=== PATIENT | female | born 1940 | race Hispanic/Latino ===

== ENCOUNTER 2017-09-22 10:26 | Emergency (ER) | payer OTHER ==
[~2017-09-22 10:26] MED LIST: ACET1TAB12 PO; ALPR0.5T8 PO; AMLO2.5T PO; ASPI-1026 PO; BIOT1CAP3 PO; CHOL400C9 PO; GLUC-252 PO; LEVO75TA10 PO; PRAV20TA4 PO; RANI150T7 PO; VITA-328 PO
[2017-09-22] MEDS ORDERED: DIAZEPAM 5 MG TABLET ONE (11:53)
[2017-09-22] MEDS ORDERED: ACETAMINOPHEN EXTRA STRENGTH 500 MG TABLET ONE (11:53)
[2017-10-31] MEDS ORDERED: ALPR0.5T8 PO (11:43)
[2017-10-31] MEDS ORDERED: ASPI-1012 PO (11:43)
== END 2017-09-22 13:03 | disposition home or self-care (01) ==
LOC: EDH 10:26
DX: M54.16 Radiculopathy, lumbar region (principal); I10 Essential (primary) hypertension; E78.5 Hyperlipidemia, unspecified; Z87.891 Personal history of nicotine dependence; Z88.6 Allergy status to analgesic agent; Z88.5 Allergy status to narcotic agent
CPT/HCPCS: 73521

== ENCOUNTER 2017-10-06 19:15 | Observation (INO) | payer OTHER ==
[2017-10-06 19:48] LABS: BASOPHILS % (AUTO) 0.5 % (0.0-5.0); EOSINOPHILS % (AUTO) 1.2 % (0.0-8.0); HEMATOCRIT 40.4 % (36-48); LYMPHOCYTES % (AUTO) 27.8 % (21.0-51.0); MEAN CORPUSCULAR HGB CONC 33.5 g/dL (32.0-36.0); MEAN CORPUSCULAR VOLUME 92.7 fL (79-99); MONOCYTES % (AUTO) 10.4 % (3.0-13.0); NEUTROPHILS % (AUTO) 60.1 % (40.0-77.0); PLATELET COUNT (AUTO) 296 K/uL (130-400); RED BLOOD CELL COUNT(AUTO) 4.36 MIL/uL (4.00-5.50); RED CELL DISTRIBUTION WIDTH 14.1 % (11.0-15.5); WHITE BLOOD COUNT (AUTO) 10.1 K/uL (4.8-10.8)
[2017-10-06] MEDS ORDERED: ASPIRIN 81MG TAB.CHEW ONE (19:49)
[2017-10-06] MEDS ORDERED: NITROGLYCERIN 0.4 MG SL TAB SL ONE (19:49)
[2017-10-06 19:58] LABS: INR 0.97 (0.85-1.15); PARTIAL THROMBOPLASTIN TIME 23.8 SEC (26.3-35.5); PROTHROMBIN TIME 10.2 SEC (9.6-11.6)
[2017-10-06 20:01] LABS: CREATININE 0.9 mg/dL (0.5-1.5); POTASSIUM 3.6 mmol/L (3.5-5.1)
[2017-10-06 20:13] LABS: ALBUMIN 3.9 g/dL (3.5-5.0); BILIRUBIN,TOTAL 0.3 mg/dL (0.2-1.0); CREATINE KINASE MB 0.9 ng/mL (0.5-3.6)
[2017-10-06] MEDS ORDERED: NITROGLYCERIN 1GM/1 INCH PACKET TD SCH (21:00)
[2017-10-06] MEDS ORDERED: NITROGLYCERIN 1GM/1 INCH PACKET TD ONE (21:05)
[2017-10-06] MEDS ORDERED: METOPROLOL TARTRATE 25 MG TAB PO SCH (21:06)
[2017-10-06] MEDS ORDERED: METOPROLOL TARTRATE 25 MG TAB ONE (21:06)
[2017-10-07 03:42] LABS: CREATINE KINASE MB 0.7 ng/mL (0.5-3.6); CREATINE KINASE, TOTAL 56 U/L (21-232); MYOGLOBIN 32 ng/mL (10-92); TROPONIN I < 0.04 ng/mL (0.00-0.06)
[2017-10-07] MEDS ORDERED: NITROGLYCERIN 1GM/1 INCH PACKET TD ONE (04:12)
[2017-10-07] MEDS ORDERED: ASPIRIN 325 MG TABLET PO SCH (09:00)
[2017-10-07 09:31] LABS: CREATINE KINASE MB 0.7 ng/mL (0.5-3.6); CREATINE KINASE, TOTAL 76 U/L (21-232); MYOGLOBIN 28 ng/mL (10-92); TROPONIN I < 0.04 ng/mL (0.00-0.06)
[2017-10-07] MEDS ORDERED: NITR0.4T50 SL (14:49)
[2017-10-31] MEDS ORDERED: ASPI-1012 PO (11:43)
[2017-10-31] MEDS ORDERED: ALPR0.5T8 PO (11:43)
== END 2017-10-07 15:29 | disposition home or self-care (01) ==
LOC: EDH 19:15 → EDHIP 20:40
PROVIDERS: ADMIT Internal Medicine; ATTEND Internal Medicine
DX: R07.89 Other chest pain (principal); I10 Essential (primary) hypertension; E78.5 Hyperlipidemia, unspecified; E03.9 Hypothyroidism, unspecified; Z88.5 Allergy status to narcotic agent
CPT/HCPCS: 36415 ×2; 71045; 80053; 82550 ×3; 82553 ×3; 83874 ×3; 84484 ×3; 85025; 85610; 85730; 93005; 99285; G0378 ×19

== ENCOUNTER 2017-11-03 06:06 | Day surgery (SDC) | payer OTHER ==
[2017-10-31 11:16] VITALS: BP 138/69
[2017-10-31 11:27] LABS: APPEARANCE,URINE Clear (CLEAR); BASOPHILS % (AUTO) 0.5 % (0.0-5.0); BILIRUBIN,URINE Negative (NEGATIVE); COLOR,URINE Yellow (YELLOW); EOSINOPHILS % (AUTO) 0.9 % (0.0-8.0); GLUCOSE, URINE (UA) Negative (NEGATIVE); HEMATOCRIT 40.2 % (36-48); KETONES,URINE Negative (NEGATIVE); LEUKOCYTE ESTERASE ,URINE Negative (NEGATIVE); LYMPHOCYTES % (AUTO) 17.9 % (21.0-51.0); MEAN CORPUSCULAR HEMOGLOBIN 31.6 pg (27.0-33.0); MEAN CORPUSCULAR HGB CONC 33.6 g/dL (32.0-36.0); MEAN CORPUSCULAR VOLUME 93.9 fL (79-99); MONOCYTES % (AUTO) 8.5 % (3.0-13.0); NEUTROPHILS % (AUTO) 72.2 % (40.0-77.0); NITRATE,URINE Negative (NEGATIVE); OCCULT BLOOD,URINE Negative (NEGATIVE); PLATELET COUNT (AUTO) 268 K/uL (130-400); PROTEIN,URINE Negative (NEGATIVE); RED BLOOD CELL COUNT(AUTO) 4.28 MIL/uL (4.00-5.50); RED CELL DISTRIBUTION WIDTH 14.5 % (11.0-15.5); UROBILINOGEN,URINE 0.2 mg/dL (0.2-1.0); WHITE BLOOD COUNT (AUTO) 8.6 K/uL (4.8-10.8)
[2017-10-31 11:34] LABS: CREATININE 0.8 mg/dL (0.5-1.5); POTASSIUM 3.9 mmol/L (3.5-5.1)
[2017-10-31 11:44] LABS: INR 0.96 (0.85-1.15); PARTIAL THROMBOPLASTIN TIME 24.1 SEC (26.3-35.5); PROTHROMBIN TIME 10.1 SEC (9.6-11.6)
[2017-11-03] VITALS (10 sets, daily range): BP systolic 124–174; BP diastolic 63–72
[~2017-11-03] VITALS: Ht 165.1 cm; Wt 62.0 kg
[~2017-11-03 06:06] MED LIST changes: -ACET1TAB12 PO; -AMLO2.5T PO; +ASPI-1012 PO; -ASPI-1026 PO; -BIOT1CAP3 PO; -CHOL400C9 PO; -GLUC-252 PO; +NITR0.4T50 SL; -RANI150T7 PO; -VITA-328 PO
[2017-11-03] MEDS ORDERED: SODIUM CHLORIDE 0.9% 1000ML 1,000 ML IV ONE (06:25)
[2017-11-03] MEDS ORDERED: DOCU100T PO (06:48)
[2017-11-03] MEDS ORDERED: AEC81 PO (06:48)
[2017-11-03] MEDS ORDERED: AMLO2.5T PO (06:48)
[2017-11-03] MEDS ORDERED: LIDOCAINE HCL 2% 20ML ONE (07:11)
[2017-11-03] MEDS ORDERED: IOPAMIDOL-370 100 ML VIAL IV ONE (07:11)
[2017-11-03] MEDS ORDERED: ISOVUE-370 50ML VIAL IV ONE (07:11)
[2017-11-03] MEDS ORDERED: HEPARIN SODIUM 1000UNIT/ML 10ML VIAL ONE (07:11)
[2017-11-03] MEDS ORDERED: HYDRALAZINE HCL 20 MG/ML VIAL ONE (07:52)
[2017-11-03] MEDS ORDERED: ALPR0.5T PO (08:09)
[2017-11-03] MEDS ORDERED: AMLO5TAB2 PO (08:09)
== END 2017-11-03 12:10 | disposition home or self-care (01) ==
LOC: DAH 06:06
PROVIDERS: ATTEND Internal Medicine Cardiovascular Disease
DX: I20.9 Angina pectoris, unspecified (principal); I10 Essential (primary) hypertension; E78.5 Hyperlipidemia, unspecified; Z79.82 Long term (current) use of aspirin; Z79.899 Other long term (current) drug therapy; E03.9 Hypothyroidism, unspecified; K21.9 Gastro-esophageal reflux disease without esophagitis
CPT/HCPCS: 36415; 71045; 80048; 81003; 85025; 85610; 85730; 93005; 93458; 99156; 99157; A4606; C1760; C1894; J0360; J1644; J3490; J7030; Q9967 ×2

== ENCOUNTER → 2018-06-03 | Outpatient (CLI) | payer OTHER ==
[~2018-06-03] MED LIST changes: +AEC81 PO; +ALPR0.5T PO; +AMLO5TAB7 PO; +DOCU100T PO
== END | disposition home or self-care (01) ==
LOC: RAH 11:43
PROVIDERS: ATTEND Family Medicine
DX: Z12.31 Encounter for screening mammogram for malignant neoplasm of breast (principal)
CPT/HCPCS: 77067

== ENCOUNTER → 2018-07-01 | Outpatient (CLI) | payer OTHER | END | disposition home or self-care (01) | LOC: SHCH 13:35 | PROVIDERS: ATTEND Internal Medicine Cardiovascular Disease | DX: G45.9 Transient cerebral ischemic attack, unspecified (principal) | CPT/HCPCS: 93880 ==

== ENCOUNTER → 2019-08-06 | Outpatient (CLI) | payer OTHER ==
[~2019-08-06] MED LIST changes: -AMLO5TAB7 PO; +AMLO5TAB9 PO
== END | disposition home or self-care (01) ==
LOC: RAH 11:38
PROVIDERS: ATTEND Family Medicine
DX: Z12.31 Encounter for screening mammogram for malignant neoplasm of breast (principal)
CPT/HCPCS: 77067

== ENCOUNTER → 2019-08-17 | Outpatient (CLI) | payer OTHER | END | disposition home or self-care (01) | LOC: RAH 12:34 | PROVIDERS: ATTEND Family Medicine | DX: R92.2 Inconclusive mammogram (principal); R92.8 Other abnormal and inconclusive findings on diagnostic imaging of breast | CPT/HCPCS: 76641; 77065 ==

== ENCOUNTER → 2019-09-23 | Outpatient (CLI) | payer OTHER ==
[2019-09-23] MEDS: REGADENOSON 0.4 MG/5 ML PF SYG IVP SCH (13:49)
== END | disposition home or self-care (01) ==
LOC: SHCH 07:48
PROVIDERS: ATTEND Internal Medicine Cardiovascular Disease
DX: I25.10 Atherosclerotic heart disease of native coronary artery without angina pectoris (principal)
CPT/HCPCS: 78452; 93017; 96374; A9500 ×2; J2785

== ENCOUNTER → 2020-08-23 | Outpatient (CLI) | payer OTHER ==
[~2020-08-23] MED LIST changes: +AMLO-257 PO; -AMLO5TAB9 PO
== END | disposition home or self-care (01) ==
LOC: RAH 14:45
PROVIDERS: ATTEND Family Medicine
DX: Z12.31 Encounter for screening mammogram for malignant neoplasm of breast (principal)
CPT/HCPCS: 77067

== ENCOUNTER 2021-08-30 12:49 | Emergency (ER) | payer OTHER ==
[~2021-08-30] VITALS: Ht 160 cm; Wt 59.0 kg
[2021-08-30 14:18] LABS: BASOPHILS % (AUTO) 0.9 % (0.0-5.0); EOSINOPHILS % (AUTO) 1.6 % (0.0-8.0); HEMATOCRIT 42.3 % (36-48); LYMPHOCYTES % (AUTO) 25.4 % (21.0-51.0); MEAN CORPUSCULAR HEMOGLOBIN 30.7 pg (27.0-33.0); MEAN CORPUSCULAR HGB CONC 31.4 g/dL (32.0-36.0); MEAN CORPUSCULAR VOLUME 97.7 fL (79-99); NEUTROPHILS % (AUTO) 61.5 % (40.0-77.0); PLATELET COUNT (AUTO) 256 K/uL (130-400); RED BLOOD CELL COUNT(AUTO) 4.33 MIL/uL (4.00-5.50); RED CELL DISTRIBUTION WIDTH 12.9 % (11.0-15.5); WHITE BLOOD COUNT (AUTO) 6.7 K/uL (4.8-10.8)
[2021-08-30 14:21] LABS: APPEARANCE,URINE Clear (CLEAR); BILIRUBIN,URINE Negative (NEGATIVE); COLOR,URINE Yellow (YELLOW); GLUCOSE, URINE (UA) Negative (NEGATIVE); KETONES,URINE Negative (NEGATIVE); LEUKOCYTE ESTERASE ,URINE Trace (NEGATIVE); NITRATE,URINE Negative (NEGATIVE); OCCULT BLOOD,URINE Negative (NEGATIVE); PROTEIN,URINE Negative (NEGATIVE); UROBILINOGEN,URINE 0.2 mg/dL (0.2-1.0)
[2021-08-30 14:30] LABS: CREATININE 0.9 mg/dL (0.5-1.5); POTASSIUM 3.3 mmol/L (3.5-5.1)
[2021-08-30 14:41] LABS: BACTERIA,URINE Rare /HPF (None Seen); RBC,URINE 0-1 /HPF (0-1); SQUAMOUS EPITHELIAL CELL,UR None Seen /HPF (0-2); WBC,URINE 0-1 /HPF (0-1)
[2021-08-30 14:50] LABS: ALBUMIN 4.4 g/dL (3.5-5.0); BILIRUBIN,TOTAL 0.3 mg/dL (0.2-1.0); TOTAL PROTEIN, SERUM 8.5 g/dL (6.0-8.3)
[2021-08-30 16:50] VITALS: BP 134/67
== END 2021-08-30 17:48 | disposition home or self-care (01) ==
LOC: EDH 12:49
DX: R42 Dizziness and giddiness (principal); R51.9 Headache, unspecified; R11.0 Nausea; E78.00 Pure hypercholesterolemia, unspecified; F32.9 Major depressive disorder, single episode, unspecified; F41.9 Anxiety disorder, unspecified; I10 Essential (primary) hypertension; Z90.49 Acquired absence of other specified parts of digestive tract; Z90.710 Acquired absence of both cervix and uterus; Z98.890 Other specified postprocedural states; Z88.2 Allergy status to sulfonamides; Z88.5 Allergy status to narcotic agent; Z79.82 Long term (current) use of aspirin; Z79.899 Other long term (current) drug therapy
CPT/HCPCS: 36415; 70450; 80053; 81001; 82550; 83874; 84484; 85025; 93005

== ENCOUNTER → 2021-09-13 | Outpatient (CLI) | payer OTHER | END | disposition home or self-care (01) | LOC: SHCH 13:46 | PROVIDERS: ATTEND Internal Medicine Cardiovascular Disease | DX: G45.9 Transient cerebral ischemic attack, unspecified (principal) | CPT/HCPCS: 93880 ==

== ENCOUNTER 2024-01-07 03:10 | Emergency (ER) | payer OTHER ==
[2024-01-07 03:36] LABS: BASOPHILS # (AUTO) 0.03 K/uL (0.00-0.20); BASOPHILS % (AUTO) 0.5 % (0.0-5.0); EOSINOPHILS # (AUTO) 0.07 K/uL (0.00-0.70); EOSINOPHILS % (AUTO) 1.2 % (0.0-8.0); HEMATOCRIT 36.5 % (36-48); IMMATURE GRANULOCYTE ABSOLUTE 0.02 K/uL (0-1); LYMPHOCYTES # (AUTO) 1.1 K/uL (1.0-4.8); LYMPHOCYTES % (AUTO) 18.5 % (21.0-51.0); MEAN CORPUSCULAR HEMOGLOBIN 30.1 pg (27.0-33.0); MEAN CORPUSCULAR HGB CONC 32.3 g/dL (32.0-36.0); MEAN CORPUSCULAR VOLUME 93.1 fL (79-99); MONOCYTES # (AUTO) 0.6 K/uL (0.1-1.0); MONOCYTES % (AUTO) 10.4 % (3.0-13.0); NEUTROPHILS # (AUTO) 4.1 K/uL (1.8-7.7); NEUTROPHILS % (AUTO) 69.1 % (40.0-77.0); PLATELET COUNT (AUTO) 225 K/uL (130-400); RED BLOOD CELL COUNT(AUTO) 3.92 MIL/uL (4.00-5.50); RED CELL DISTRIBUTION WIDTH 13.1 % (11.0-15.5); WHITE BLOOD COUNT (AUTO) 5.9 K/uL (4.8-10.8)
[2024-01-07 03:45] LABS: CREATININE 0.7 mg/dL (0.5-1.0); POTASSIUM 4.3 mmol/L (3.5-5.1)
[2024-01-07 03:50] LABS: ALBUMIN 3.5 g/dL (3.5-5.0); BILIRUBIN,TOTAL 0.3 mg/dL (0.2-1.0)
[2024-01-07 04:57] VITALS: BP 143/62; PULSE 69; RESP 20; O2SAT 96
== END 2024-01-07 05:25 | disposition home or self-care (01) ==
LOC: EDH 03:10
DX: R07.89 Other chest pain (principal); R42 Dizziness and giddiness; I10 Essential (primary) hypertension; E78.00 Pure hypercholesterolemia, unspecified; F41.9 Anxiety disorder, unspecified; F32.A Depression, unspecified; Z79.82 Long term (current) use of aspirin; Z79.899 Other long term (current) drug therapy; Z90.49 Acquired absence of other specified parts of digestive tract; Z90.710 Acquired absence of both cervix and uterus; Z98.890 Other specified postprocedural states; Z88.2 Allergy status to sulfonamides; Z88.8 Allergy status to other drugs, medicaments and biological substances
CPT/HCPCS: 36415; 71045; 80053; 84484; 85025; 93005

== ENCOUNTER → 2024-03-15 | Outpatient (CLI) | payer OTHER | END | disposition home or self-care (01) | LOC: RAH 09:07 | PROVIDERS: ATTEND Family Medicine | DX: N64.4 Mastodynia (principal) | CPT/HCPCS: 76641 ==

== ENCOUNTER 2024-05-15 11:12 | Observation (INO) | payer OTHER ==
[~2024-05-15] VITALS: Ht 162.6 cm; Wt 55.3 kg
[2024-05-15 11:29] LABS: BASOPHILS # (AUTO) 0.04 K/uL (0.00-0.20); BASOPHILS % (AUTO) 0.5 % (0.0-5.0); HEMATOCRIT 36.4 % (36-48); IMMATURE GRANULOCYTE ABSOLUTE 0.06 K/uL (0-1); LYMPHOCYTES # (AUTO) 0.8 K/uL (1.0-4.8); LYMPHOCYTES % (AUTO) 10.8 % (21.0-51.0); MEAN CORPUSCULAR HEMOGLOBIN 30.4 pg (27.0-33.0); MEAN CORPUSCULAR HGB CONC 32.7 g/dL (32.0-36.0); MEAN CORPUSCULAR VOLUME 92.9 fL (79-99); MONOCYTES # (AUTO) 0.7 K/uL (0.1-1.0); MONOCYTES % (AUTO) 9.6 % (3.0-13.0); NEUTROPHILS % (AUTO) 78.3 % (40.0-77.0); PLATELET COUNT (AUTO) 195 K/uL (130-400); RED BLOOD CELL COUNT(AUTO) 3.92 MIL/uL (4.00-5.50); RED CELL DISTRIBUTION WIDTH 13.4 % (11.0-15.5); WHITE BLOOD COUNT (AUTO) 7.6 K/uL (4.8-10.8)
[2024-05-15 11:35] LABS: CREATININE 0.9 mg/dL (0.5-1.0); POTASSIUM 3.6 mmol/L (3.5-5.1)
[2024-05-15 11:45] LABS: B-TYPE NATRIURETIC PEPTIDE 32 pg/mL (0-100)
[2024-05-15] MEDS ORDERED: ondanSETRON 4MG INJ IVP ONE (12:30)
[2024-05-15] MEDS ORDERED: FAMOTIDINE 20MG VIAL IV ONE (12:30)
[2024-05-15] MEDS ORDERED: acetaMINOPHEN 650 MG SUPPOSITORY RC PRN (13:30)
[2024-05-15] MEDS ORDERED: hydrALAZine 20MG/ML VIAL IV PRN (13:30)
[2024-05-15] MEDS ORDERED: acetaMINOPHEN 325 MG TAB PO PRN (13:30)
[2024-05-15] MEDS: cefTRIAXone 1G VIAL IVP SCH (13:33)
[2024-05-15] MEDS ORDERED: NITROGLYCERIN 0.4 MG SL TAB SL PRN (14:00)
[2024-05-15] MEDS ORDERED: ALPRAZolam 0.5 MG TABLET PO SCH (14:00)
[2024-05-15] MEDS: ASPIRIN 325MG EC TAB PO ONE (14:02)
[2024-05-15 14:20] LABS: APPEARANCE,URINE CLEAR (CLEAR); BILIRUBIN,URINE NEGATIVE (NEGATIVE); COLOR,URINE YELLOW (YELLOW); GLUCOSE, URINE (UA) NEGATIVE (NEGATIVE); KETONES,URINE NEGATIVE (NEGATIVE); LEUKOCYTE ESTERASE ,URINE NEGATIVE Leu/uL (NEGATIVE); NITRATE,URINE NEGATIVE (NEGATIVE); PH,URINE 7.5 (5.0-8.0); PROTEIN,URINE NEGATIVE (NEGATIVE); UROBILINOGEN,URINE 0.2 mg/dL (0.2-1.0)
[2024-05-15 14:21] LABS: ADD UA MICROSCOPIC YES
[2024-05-15] MEDS: BisaCODYL 10 MG SUPP.RECT RC ONE (14:21)
[2024-05-15 14:23] LABS: MUCUS,URINE RARE LPF (None Seen); WBC,URINE 0-1 /HPF (0-1)
[2024-05-15] MEDS ORDERED: ALPRAZolam 0.5 MG TABLET PO PRN (14:30)
[2024-05-15 15:09] LABS: INFLUENZA TYPE A Negative For Type A (NEGATIVE); INFLUENZA TYPE B Negative For Type B (NEGATIVE)
[2024-05-15 15:10] LABS: COVID19 (SARS ANTIGEN RAPID) PRESUMPTIVE NEGATIVE (NEGATIVE)
[2024-05-15 17:20] VITALS: O2SAT 98
[2024-05-15 17:25] VITALS: BP 113/50; PULSE 67; RESP 17; TEMP 98
[2024-05-15 19:18] LABS: INR 1.04 (0.85-1.15); PROTHROMBIN TIME 11.2 SEC (9.6-11.6)
[2024-05-15 20:00] VITALS: BP 133/58; PULSE 61; RESP 16; TEMP 97.9; O2SAT 99
[2024-05-15] MEDS: PRAVASTATIN SODIUM 20 MG PO SCH (21:00)
[2024-05-15] MEDS ORDERED: simVASTatin 20 MG TABLET PO SCH (21:00)
[2024-05-15 23:51] VITALS: BP 110/55; PULSE 53; RESP 16; TEMP 98
[2024-05-16 03:55] VITALS: BP 132/73; PULSE 55; RESP 16; TEMP 98
[2024-05-16 04:39] LABS: BASOPHILS # (AUTO) 0.05 K/uL (0.00-0.20); BASOPHILS % (AUTO) 0.9 % (0.0-5.0); EOSINOPHILS # (AUTO) 0.07 K/uL (0.00-0.70); EOSINOPHILS % (AUTO) 1.2 % (0.0-8.0); HEMATOCRIT 40.1 % (36-48); IMMATURE GRANULOCYTE ABSOLUTE 0.03 K/uL (0-1); LYMPHOCYTES # (AUTO) 1.8 K/uL (1.0-4.8); LYMPHOCYTES % (AUTO) 30.7 % (21.0-51.0); MEAN CORPUSCULAR HEMOGLOBIN 30.9 pg (27.0-33.0); MEAN CORPUSCULAR HGB CONC 32.7 g/dL (32.0-36.0); MEAN CORPUSCULAR VOLUME 94.6 fL (79-99); MONOCYTES # (AUTO) 1.1 K/uL (0.1-1.0); MONOCYTES % (AUTO) 18.5 % (3.0-13.0); NEUTROPHILS # (AUTO) 2.8 K/uL (1.8-7.7); NEUTROPHILS % (AUTO) 48.2 % (40.0-77.0); PLATELET COUNT (AUTO) 193 K/uL (130-400); RED BLOOD CELL COUNT(AUTO) 4.24 MIL/uL (4.00-5.50); RED CELL DISTRIBUTION WIDTH 13.6 % (11.0-15.5); WHITE BLOOD COUNT (AUTO) 5.8 K/uL (4.8-10.8)
[2024-05-16 05:15] LABS: B-TYPE NATRIURETIC PEPTIDE 46 pg/mL (0-100)
[2024-05-16 05:18] LABS: CREATININE 1.1 mg/dL (0.5-1.0); MAGNESIUM 2.3 mg/dL (1.80-2.40); POTASSIUM 3.9 mmol/L (3.5-5.1); THYROID STIMULATING HORMONE 1.05 uIU/mL (0.36-3.74)
[2024-05-16] MEDS: levoTHYROxine 75 MCG TABLET PO SCH (07:00)
[2024-05-16 07:50] VITALS: BP 134/60; PULSE 58; RESP 16; TEMP 97.6
[2024-05-16 08:00] VITALS: O2SAT 99
[2024-05-16] MEDS: amLODIPine 5 MG TAB PO SCH (08:02)
[2024-05-16] MEDS: polyETHYLene GLYCol 3350 17 GM POWD.PACK PO SCH (08:03)
[2024-05-16] MEDS: PANTOPrazole 40 MG TAB DR PO SCH (08:03)
[2024-05-16] MEDS: ASPIRIN 81MG CHEW TAB PO SCH (08:03)
[2024-05-16] MEDS: ISOSORBIDE MONO 60MG SR TAB PO SCH (08:03)
[2024-05-16] MEDS: ENOXAPARIN SODIUM 40 MG/0.4 ML SYRINGE SQ SCH (08:04)
[2024-05-16] MEDS ORDERED: ISOSORBIDE MONO 30MG SR TAB PO SCH (09:00)
[2024-05-16 11:43] VITALS: BP 115/55; PULSE 59; RESP 16; TEMP 97.7
[2024-05-16 11:52] LABS: CHOLESTEROL 189 mg/dL (<200); HDL CHOLESTEROL 82 mg/dL (35-85); LDL DIRECT 83 mg/dL (0-99); TRIGLYCERIDES 95 mg/dL (30-200)
[2024-05-16] MEDS: doCUSate SODIUM 100 MG CAP PO PRN (15:16)
[2024-05-16] MEDS: LACTULOSE 20 GM/30 ML UDCUP PO PRN (15:16)
[2024-05-16] MEDS ORDERED: Isosorbide Mono 60MG Sr Tab PO (15:40)
[2024-05-16 16:27] VITALS: BP 111/57; PULSE 60; RESP 16; TEMP 98.3
== END 2024-05-16 17:20 | disposition home or self-care (01) ==
LOC: EDH 11:12 → EDHIP 13:55 → 3CH 16:50
PROVIDERS: ADMIT Internal Medicine Pulmonary Disease; ATTEND Internal Medicine Pulmonary Disease
DX: I25.119 Atherosclerotic heart disease of native coronary artery with unspecified angina pectoris (principal); I11.0 Hypertensive heart disease with heart failure; I50.32 Chronic diastolic (congestive) heart failure; K21.9 Gastro-esophageal reflux disease without esophagitis; K59.00 Constipation, unspecified; F03.94 Unspecified dementia, unspecified severity, with anxiety; E89.0 Postprocedural hypothyroidism; R07.89 Other chest pain; R11.2 Nausea with vomiting, unspecified; E78.5 Hyperlipidemia, unspecified; F41.9 Anxiety disorder, unspecified; E78.00 Pure hypercholesterolemia, unspecified; M19.90 Unspecified osteoarthritis, unspecified site; Z87.891 Personal history of nicotine dependence; Z88.2 Allergy status to sulfonamides; Z90.710 Acquired absence of both cervix and uterus; Z98.890 Other specified postprocedural states; Z79.899 Other long term (current) drug therapy; Z20.822 Contact with and (suspected) exposure to COVID-19
CPT/HCPCS: 96365; 99285; 82550 ×4; 83735 ×2; 84484 ×4; 80048 ×2; 83880 ×2; 85025 ×2; 85378; 85610; 87804 ×2; 87426; 81001; 36415 ×2; 71045; 93005 ×2; 96372; 84443; 80061; 97161; 97116; 97530 ×2; 84145; G0378 ×26; J0696; J1650; G8980-CI; G8983-CI

== ENCOUNTER → 2024-10-11 | Outpatient (CLI) | payer OTHER ==
[~2024-10-11] MED LIST changes: -ALPR0.5T8 PO; -ASPI-1012 PO; +Isosorbide Mono 60MG Sr Tab PO
--- NOTE | 2024-10-11 09:30 | HMCIMG ---
MAMMO SCREENING BILATERAL HISTORY: Screening mammogram. COMPARISON: 10/09/2023 TECHNIQUE: Bilateral screening mammogram with CAD was performed with craniocaudal and mediolateral oblique projections. FINDINGS: The breasts are extremely dense which lowers the sensitivity of mammogram. There is no evidence of a dominant mass, or suspicious microcalcification. There is no evidence of nipple retraction or skin thickening. IMPRESSION: 1. Stable mammogram. Patient was entered into a reminder system with a target due date for their next mammogram. BI-RADS: CATEGORY 2: BENIGN FINDINGS Recommend monthly self breast exam as well as annual clinical examination. A negative x-ray should not delay biopsy if a dominant or clinically suspicious mass is present, since 8-10% of cancers are not identified by mammography. Dense breasts particularly, may obscure an underlying neoplasm. Some of these may be detected clinically and therefore, clinical examination is an essential part of breast evaluation.
== END | disposition home or self-care (01) ==
LOC: RAH 08:41
PROVIDERS: ATTEND Family Medicine
DX: Z12.31 Encounter for screening mammogram for malignant neoplasm of breast (principal); R92.343 Mammographic extreme density, bilateral breasts
CPT/HCPCS: 77067